=== PATIENT | female | born 1980 | race Caucasian/White ===

== ENCOUNTER 2024-04-09 06:45 | Observation (INO) | payer BC, OTHER ==
[~2024-04-09 06:45] MED LIST: Lidocaine 1% 2 ML ONE; Midazolam 1 MG/ML 2 ML SDV ONE; Propofol 200 MG/20 ML SDV ONE; fentaNYL 250 MCG/5 ML SDV ONE
[2024-04-09] MEDS ORDERED: ceFAZolin 2 GM Vial ONE ×2 (07:26→08:14)
[2024-04-09] MEDS ORDERED: Rocuronium 50 MG/5 ML Vial ONE ×3 (07:26→08:45)
[2024-04-09] MEDS: Lactated Ringers 1,000 ML IV SCH (07:30)
[2024-04-09] MEDS ORDERED: Dexamethasone 4 MG/ML 5 ML MDV ONE (07:32)
[2024-04-09 07:51] LABS: HEMATOCRIT 39.8 % (37.0-47.0); HEMOGLOBIN 13.2 gm/dl (12.0-16.0); MEAN CORPUSCULAR HEMOGLOBIN 28.6 pg (28.0-32.0); MEAN CORPUSCULAR HGB CONC 33.2 g/dl (32.0-36.0); MEAN CORPUSCULAR VOLUME 86.3 fl (83.0-99.0); MEAN PLATELET VOLUME 9.7 fl (9.4-12.3); NRBC ABSOLUTE 0.02 (0.00-0.02); NRBC PERCENT 0.6 % (0.0-0.2); PLATELET COUNT,PLT 139 K/mm3 (150-400); RED BLOOD CELL COUNT 4.61 M/mm3 (4.10-5.30); WHITE BLOOD CELL COUNT,WBC 3.18 K/mm3 (3.9-11.3)
[2024-04-09] MEDS ORDERED: Propofol 200 MG/20 ML SDV ONE (08:04)
[2024-04-09] MEDS ORDERED: Midazolam 1 MG/ML 2 ML SDV ONE (08:08)
[2024-04-09] MEDS ORDERED: Lidocaine 1% PF 2 ML SDV ONE (08:15)
[2024-04-09] MEDS: Bupivacaine 0.25% 10 ML SDV ONE (08:30)
[2024-04-09] MEDS ORDERED: HYDROmorphone 0.5 MG/0.5 ML Syringe ONE ×2 (08:34→09:00)
[2024-04-09 08:50] LABS: ANION GAP 13.2 (5-15); BUN/CREATININE RATIO 17.8 (14-18); CALCIUM 9.1 mg/dL (8.5-10.1); CREATININE 0.9 mg/dL (0.55-1.02); EST CRCL DRUG DOSING (CG) 63.75 mL/min; POTASSIUM,K 4.2 mEq/L (3.5-5.1)
[2024-04-09] MEDS ORDERED: Lactated Ringers 1,000 ML IV ONE (09:00)
[2024-04-09] MEDS ORDERED: Sugammadex Sodium 200 MG/2 ML VIAL IV ONE (09:03)
[2024-04-09] MEDS ORDERED: Ketorolac 30 MG/ML SDV ONE (09:05)
[2024-04-09] MEDS ORDERED: Ondansetron 4 MG/2 ML SDV ONE (09:05)
[2024-04-09 09:16] LABS: BAND PERCENT MAN 1 % (0-10); BASOPHILS PERCENT MAN 0 (0.1-1.2); EOSINOPHILS PERCENT MAN 0 % (0.7-5.8); LYMPHOCYTES % ATYPICAL MANUAL 0 %; LYMPHOCYTES PERCENT MAN 25 % (20-40); MONOCYTES PERCENT MAN 0 % (2-10)
[2024-04-09 09:17] LABS: PLATELET COUNT ESTIMATE DECREASED
[2024-04-09] MEDS ORDERED: oxyCODONE 5 MG Tab PO PRN (09:49)
[2024-04-09] MEDS ORDERED: Hyaluronidase, Human Recomb. 150 Unit/ML Vial IJ ONE (10:15)
[2024-04-09] MEDS: Hyaluronidase, Human Recomb. 150 Unit/ML Vial IJ ONE (10:21)
[2024-04-09] MEDS: fentaNYL 100 MCG/2 ML SDV IVPUSH PRN (10:57)
[2024-04-09] MEDS: HYDROmorphone 0.5 MG/0.5 ML Syringe IVPUSH PRN (12:24)
[2024-04-09] MEDS: Acetaminophen 325 MG Tab PO SCH ×2 (12:25→18:39)
[2024-04-09] MEDS: Ibuprofen 600 MG Tab PO SCH (14:59)
[2024-04-09] MEDS: Ondansetron 4 MG/2 ML SDV IVPUSH PRN (16:02)
[2024-04-09] MEDS: Metoclopramide 10 MG/2 ML SDV IVPUSH PRN (17:25)
[2024-04-09] MEDS: Sodium Chloride 0.9% 10 ML Syringe FLUSH SCH (18:38)
[2024-04-09] MEDS: Famotidine 20 MG Tab PO SCH (18:42)
[2024-04-09] MEDS: Metoprolol Succinate 50 MG Tab.ER PO SCH (21:07)
[2024-04-09] MEDS: Docusate Sodium 100 MG Cap PO SCH (21:08)
[2024-04-09] MEDS: Lisinopril 5 MG Tab PO SCH (21:19)
[2024-04-10 06:15] LABS: ANION GAP 12.9 (5-15); BUN/CREATININE RATIO 14.4 (14-18); CREATININE 0.9 mg/dL (0.55-1.02); EST CRCL DRUG DOSING (CG) 63.75 mL/min; POTASSIUM,K 3.9 mEq/L (3.5-5.1)
[2024-04-10 06:42] LABS: HEMATOCRIT 36.3 % (37.0-47.0); HEMOGLOBIN 12.1 gm/dl (12.0-16.0); MEAN CORPUSCULAR HEMOGLOBIN 29.6 pg (28.0-32.0); MEAN CORPUSCULAR HGB CONC 33.3 g/dl (32.0-36.0); MEAN CORPUSCULAR VOLUME 88.8 fl (83.0-99.0); PLATELET COUNT,PLT 151 K/mm3 (150-400); RED BLOOD CELL COUNT 4.09 M/mm3 (4.10-5.30); WHITE BLOOD CELL COUNT,WBC 7.34 K/mm3 (3.9-11.3)
[2024-04-10 06:47] LABS: CALCIUM 8.1 mg/dL (8.5-10.1)
[2024-04-10] MEDS ORDERED: TAMOXIFEN 20 MG PO SCH (09:00)
== END 2024-04-10 10:12 | disposition home or self-care (01) ==
LOC: JD.SDS 06:45 → JD.OB 10:49
PROVIDERS: ADMIT Obstetrics & Gynecology; ATTEND Obstetrics & Gynecology
DX: D25.1 Intramural leiomyoma of uterus (principal); D25.0 Submucous leiomyoma of uterus; D25.2 Subserosal leiomyoma of uterus; N84.0 Polyp of corpus uteri; N83.201 Unspecified ovarian cyst, right side; N83.292 Other ovarian cyst, left side; Z79.899 Other long term (current) drug therapy
CPT/HCPCS: 36415; 58150; 80048; 81025; 85007; 85027; 86850; 86900; 86901; 96374; A9270; G0378; J0690; J1100; J1170; J1885; J2250; J2405; J2704; J2765; J3010; J3490; J7120; 00840; J0665